=== PATIENT | female | born 1975 | race Caucasian/White ===

== ENCOUNTER 2016-12-21 20:32 | Emergency (ER) | payer MEDICAID, OTHER ==
[~2016-12-21] VITALS: Ht 162.6 cm; Wt 104.3 kg
[2016-12-21 20:38] VITALS: BP_SYST 138
--- NOTE | 2016-12-21 20:38 | NUR ---
Patient to ER bed 7 to gown for evaluation. Side rails up. Report given to Maribeth BHATT.
--- NOTE | 2016-12-21 20:40 | NUR ---
ER at bedside examining patient.
[2016-12-21] MEDS ORDERED: IBUPROFEN 800 MG TABLET PO ONE (20:45)
[2016-12-21] MEDS ORDERED: SILVER SULFADIAZINE 1%, 25 GM TOPICAL CREAM (SSD) TP ONE (20:45)
--- NOTE | 2016-12-21 20:48 | NUR ---
Pt brought herself into the ER in stable condition. Pt c/o right palm pain 8/10 s/p boiling hot water splash 30 min ago while making pasta. Pt present w/ blister to right palm. -n/v/d -sob -chest pain. No acute distress noted at this time, will continue to monitor
[2016-12-21 21:12] VITALS: BP_SYST 138
--- NOTE | 2016-12-21 21:12 | NUR ---
Patient given written and verbal discharge instructions and verbalizes understanding. ER MD Mcgraw discussed with patient the results and treatment provided. Patient in stable condition. ID arm band removed. Rx of Silvadene, [place] 5-325, and Ibuprofen 800 given. Patient educated on pain management and to follow up with PMD. Pain Scale 3/10. Opportunity for questions provided and answered.
== END 2016-12-21 21:12 | disposition home or self-care (01) ==
LOC: SED 20:32
DX: T23.101A Burn of first degree of right hand, unspecified site, initial encounter (principal); Z91.041 Radiographic dye allergy status; X12.XXXA Contact with other hot fluids, initial encounter; Y93.89 Activity, other specified; Y99.8 Other external cause status; Y92.89 Other specified places as the place of occurrence of the external cause
CPT/HCPCS: 99284

== ENCOUNTER 2017-02-07 20:04 | Emergency (ER) | payer OTHER ==
[~2017-02-07] VITALS: Ht 167.6 cm; Wt 93.0 kg
[2017-02-07 20:13] VITALS: BP_SYST 138
[2017-02-07] MEDS ORDERED: NACL 0.9% 1,000 ML IV ONE (21:45)
[2017-02-07] MEDS ORDERED: PROCHLORPERAZINE EDISYLATE 10 MG/2 ML VIAL IVP ONE (21:45)
[2017-02-07] MEDS ORDERED: MAG HYDROX/AL HYDROX/SIMETH 30 ML, LIDOCAINE VISCOUS 2% 15ML (PO) 10 ML, BELLADONNA ALK... PO ONE ×6 (21:45)
[2017-02-07] MEDS ORDERED: PANTOPRAZOLE SODIUM 40 MG/VIAL (PROTONIX) IVP ONE (21:45)
[2017-02-07 21:53] LABS: BASOPHILS # (AUTO) 0.1 K/uL (0.0-0.2); EOSINOPHILS # (AUTO) 0.2 K/uL (0.0-0.4); EOSINOPHILS % (AUTO) 3.7 % (0.0-4.0); HEMOGLOBIN 12.1 g/dL (12.0-16.0); MEAN CORPUSCULAR HGB CONC 33 % (32-36); MEAN CORPUSCULAR VOLUME 75 fL (79.0-98.0); WHITE BLOOD COUNT (AUTO) 6.3 K/uL (4.8-10.8)
[2017-02-07 22:01] LABS: CALCIUM 8.9 mg/dL (8.4-11.0); CREATININE 0.87 mg/dL (0.55-1.30); POTASSIUM 3.7 mmol/L (3.5-5.1)
[2017-02-07 22:03] LABS: BASOPHILS % (AUTO) 2.1 % (0.0-2.0); HEMATOCRIT 37.1 % (36-48); LYMPHOCYTES # (AUTO) 0.7 K/uL (1.0-5.5); LYMPHOCYTES % (AUTO) 11.2 % (20.5-51.5); MEAN CORPUSCULAR HEMOGLOBIN 24 pg (27-31); MONOCYTES # (AUTO) 0.7 K/uL (0.0-1.0); MONOCYTES % (AUTO) 11.6 % (1.7-9.3); NEUTROPHILS # (AUTO) 4.6 K/uL (1.8-7.7); NEUTROPHILS % (AUTO) 71.4 % (40.0-70.0); PLATELET COUNT (AUTO) 283 K/uL (130-430); RED BLOOD CELL COUNT(AUTO) 4.96 MIL/uL (4.2-6.2); RED CELL DISTRIBUTION WIDTH 14.8 % (9.0-15.0)
[2017-02-07 22:06] LABS: ALBUMIN 3.5 g/dL (3.4-4.8); TOTAL BILIRUBIN 0.3 mg/dL (0.0-1.0); TOTAL PROTEIN, SERUM 7.7 g/dL (6.4-8.3)
[2017-02-07 22:15] LABS: BILIRUBIN,URINE NEGATIVE (NEGATIVE); CLARITY/URINE CLEAR (CLEAR); COLOR,URINE YELLOW (YELLOW); GLUCOSE,URINE NEGATIVE (NEGATIVE); KETONES,URINE NEGATIVE (NEGATIVE); LEUKOCYTE ESTERASE ,URINE NEGATIVE (NEGATIVE); NITRITE, URINE NEGATIVE (NEGATIVE); PH,URINE 6.5 (5.0-8.0); PROTEIN URINE NEGATIVE (NEGATIVE); UROBILINOGEN,URINE 0.2 (0.2-1.0)
[2017-02-07 22:16] LABS: BLOOD, URINE TRACE (NEGATIVE)
[2017-02-07 22:31] LABS: BACTERIA,URINE FEW /HPF (None Seen); RBC,URINE 0-3 /HPF (0-3); WBC,URINE 0-3 /HPF (0-3)
[2017-02-07 22:32] LABS: MUCUS,URINE None Seen /LPF (None Seen)
[2017-02-07] MEDS ORDERED: IPRATROPIUM/ALBUTEROL SULFATE 3 ML AMPUL.NEB INH ONE (23:00)
[2017-02-07 23:49] VITALS: BP_SYST 126
== END 2017-02-07 23:49 | disposition home or self-care (01) ==
LOC: SED 20:04
DX: B34.9 Viral infection, unspecified (principal); K21.9 Gastro-esophageal reflux disease without esophagitis; Z88.8 Allergy status to other drugs, medicaments and biological substances
CPT/HCPCS: 36415; 71010; 80053; 81000; 81025; 85025; 94640; 96361; 96374; 96375; 99285; C9113; J0780; J2001; J7030

== ENCOUNTER 2017-04-21 06:03 | Emergency (ER) | payer OTHER ==
[~2017-04-21] VITALS: Ht 162.6 cm; Wt 99.8 kg
[2017-04-21 06:18] VITALS: BP_SYST 113
--- NOTE | 2017-04-21 06:20 | NUR ---
Patient to ER bed 8 to gown for evaluation. Side rails up. Report given to Joshua BHATT.
--- NOTE | 2017-04-21 06:20 | NUR ---
Pt states that she has had a rash on her legs and groin area for two weeks. Pt saw her primary care and states the medications she has gotten have not worked. Will continue to monitor. No other injuries or complaints mentioned/noted. No distress noted. AAOx4.
--- NOTE | 2017-04-21 06:30 | NUR ---
ER Dr. Vivar at bedside examining patient.
[2017-04-21 07:05] VITALS: BP_SYST 113
--- NOTE | 2017-04-21 07:05 | NUR ---
Patient given written and verbal discharge instructions and verbalizes understanding. ER MD discussed with patient the results and treatment provided. Patient in stable condition. ID arm band removed. Rx of Prednisone, Aveeno, and benadryl given. Patient educated on pain management and to follow up with PMD. Pain Scale 0/10. Opportunity for questions provided and answered.
== END 2017-04-21 07:05 | disposition home or self-care (01) ==
LOC: SED 06:03
DX: L29.9 Pruritus, unspecified (principal); Z91.041 Radiographic dye allergy status; K21.9 Gastro-esophageal reflux disease without esophagitis
CPT/HCPCS: 99283

== ENCOUNTER 2018-08-04 11:07 | Emergency (ER) | payer OTHER ==
[~2018-08-04] VITALS: Ht 162.6 cm; Wt 99.8 kg
[2018-08-04 11:10] VITALS: BP_SYST 104
[2018-08-04] MEDS ORDERED: KETOROLAC TROMETHAMINE 60 MG/2 ML VIAL IM ONE (11:45)
[2018-08-04 13:18] VITALS: BP_SYST 104
== END 2018-08-04 13:18 | disposition home or self-care (01) ==
LOC: SED 11:07
DX: M54.41 Lumbago with sciatica, right side (principal); M25.561 Pain in right knee; K21.9 Gastro-esophageal reflux disease without esophagitis; R03.0 Elevated blood-pressure reading, without diagnosis of hypertension; Z91.041 Radiographic dye allergy status
CPT/HCPCS: 73564; 81025; 96372; 99284; J1885

== ENCOUNTER 2019-10-25 21:14 | Emergency (ER) | payer OTHER ==
[~2019-10-25] VITALS: Ht 162.6 cm; Wt 99.8 kg
[2019-10-25 21:25] VITALS: BP_SYST 136
[2019-10-26 00:52] LABS: BASOPHILS # (AUTO) 0.1 K/uL (0.0-0.2); BASOPHILS % (AUTO) 0.8 % (0.0-2.0); EOSINOPHILS # (AUTO) 0.3 K/uL (0.0-0.4); EOSINOPHILS % (AUTO) 3.7 % (0.0-4.0); HEMATOCRIT 35.6 % (36-48); HEMOGLOBIN 11.5 g/dL (12.0-16.0); LYMPHOCYTES # (AUTO) 3.1 K/uL (1.0-5.5); LYMPHOCYTES % (AUTO) 37.4 % (20.5-51.5); MEAN CORPUSCULAR HEMOGLOBIN 25 pg (27-31); MEAN CORPUSCULAR HGB CONC 32 % (32-36); MEAN CORPUSCULAR VOLUME 77 fL (79.0-98.0); MONOCYTES # (AUTO) 0.7 K/uL (0.0-1.0); MONOCYTES % (AUTO) 8.5 % (1.7-9.3); NEUTROPHILS # (AUTO) 4.1 K/uL (1.8-7.7); NEUTROPHILS % (AUTO) 49.6 % (40.0-70.0); PLATELET COUNT (AUTO) 311 K/uL (130-430); RED BLOOD CELL COUNT(AUTO) 4.62 MIL/uL (4.2-6.2); RED CELL DISTRIBUTION WIDTH 15.5 % (9.0-15.0); WHITE BLOOD COUNT (AUTO) 8.2 K/uL (4.8-10.8)
[2019-10-26 01:11] LABS: CALCIUM 8.6 mg/dL (8.4-11.0); CREATININE 0.7 mg/dL (0.55-1.30); POTASSIUM 3.9 mmol/L (3.5-5.1)
[2019-10-26 01:14] LABS: INR 0.9 (0.8-1.2); PROTHROMBIN TIME 9.3 SECS (9.5-12.5)
[2019-10-26 01:16] LABS: ALBUMIN 3.2 g/dL (3.4-4.8); TOTAL BILIRUBIN 0.2 mg/dL (0.0-1.0)
[2019-10-26 02:05] VITALS: BP_SYST 115
== END 2019-10-26 02:05 | disposition home or self-care (01) ==
LOC: SED 21:14
DX: R60.0 Localized edema (principal); K21.9 Gastro-esophageal reflux disease without esophagitis; E03.9 Hypothyroidism, unspecified
CPT/HCPCS: 36415; 71045; 80053; 83880; 84484; 85025; 85379; 85610-TC; 85730-TC; 93005; 93970; 99284